=== PATIENT | female | born 1975 | race Caucasian/White ===

== ENCOUNTER → 2018-03-09 | Outpatient (CLI) | payer BC ==
--- NOTE | 2018-03-09 15:54 | KCIC ---
Complete abdominal ultrasound History: Right upper quadrant pain. Findings: Aorta: No evidence of aneurysm. Inferior vena cava: Patent Pancreas: Unremarkable Liver: Unremarkable and not enlarged Gallbladder: No evidence of cholelithiasis, gallbladder wall thickening or pericholecystic fluid. Bile ducts: No evidence of dilatation Right kidney: 11.0 cm longitudinal. Echogenic structure measuring 4 mm at the lower pole, may represent a calculus. No evidence of hydronephrosis Left kidney: 11.9 cm longitudinal, without hydronephrosis or shadowing calculus Spleen: Not enlarged Impression: 1. Findings compatible with a small nonobstructive right lower pole renal calculus. 2. No other significant abnormalities. Electronically signed by: Gaurav Herrera MD (03/09/2018 3:50 PM) [facility]
== END | disposition home or self-care (01) ==
LOC: KCIC US 12:44
PROVIDERS: ATTEND Emergency Medicine
DX: R10.11 Right upper quadrant pain (principal)
CPT/HCPCS: 76700

== ENCOUNTER → 2019-01-14 | Day surgery (SDC) | payer BC ==
[~2019-01-14] MED LIST: ALPR0.254 PO; IV RINGERS,LACTATED 1000ML 1,000 ML IV SCH; LEVO75TA5 PO; MULT1TAB52 PO; PROPOFOL 20 ML IV ONE; RANI-376 PO; SERT100T PO
--- NOTE | 2019-01-14 15:30 | PDOC4 ---
PROCEDURE Procedure EGD/biopsies Indication: dyspepsia/ruq pain/negative CT and sono Meds: per anesthesia Findings: E--LA grade A reflux at 40cm. G--Mild diffuse erythema, antrum, biopsied. D--Normal to second portion. Rob. well. IMP: Reflux esophagitis Antral erythema. REC: omeprazole 40mg daily. resume other meds, diet. await path. F/u with me in 2 weeks. GUILLERMINA SWENSON MD Jan 14, 2019 15:30
[2019-01-14 15:47] VITALS: BP 111/71
--- NOTE | 2019-01-16 15:06 | PATHOLOGY ---
[facility] Accession Number: [id number] . 01 Material submitted: . stomach - BIOPSY ANTRUM . 01 Clinical history: . Abdominal pain . 02 Diagnosis: Gastric biopsies, antrum: - Chronic gastritis, mild. (JPM:christopher; 01/16/2019) QMS/01/16/2019 . 02 Comment: Sections of the gastric antral biopsy show congestion and mild chronic inflammation. A properly controlled immunoperoxidase stain for Helicobacter is negative for Helicobacter organisms. (JPM:christopher; 01/16/2019) . . Special stain performed: Immunoperoxidase stain for Helicobacter. . 02 Electronically signed: . Matt Bowser MD, Pathologist NPI- [id number] . 01 Gross description: . The specimen is received in formalin, labeled "Eli Kuhn, BX antrum" and consists of 2 fragments of alfaro tissue measuring 0.7 x 0.2 x 0.1 cm and 0.3 x 0.3 x 0.2 cm which are entirely submitted in A1. (SDY; 01/15/2019) SYU/SYU . 02 Pathologist provided ICD-10: K29.50 . 02 CPT . 787603, [id number] Specimen Comment: A courtesy copy of this report has been sent to Specimen Comment: [phone], . Specimen Comment: Report sent to / DR WHITE Performed at: 01 [facility] [address], [place] [id number] MD Mike Casarez MD Phone: [phone] Performed at: 02 [facility] [address] [place], [place] [id number] MD Matt Bowser MD Phone: [phone]
== END ==
LOC: SURG 14:13
PROVIDERS: ATTEND Internal Medicine Gastroenterology
DX: K29.50 Unspecified chronic gastritis without bleeding (principal); K21.9 Gastro-esophageal reflux disease without esophagitis; E03.9 Hypothyroidism, unspecified; M19.90 Unspecified osteoarthritis, unspecified site; Z79.899 Other long term (current) drug therapy
CPT/HCPCS: 43239; J2704